=== PATIENT | female | born 2000 | race American Indian/Alaskan Native ===

== ENCOUNTER 2019-05-31 00:44 | Outpatient (CLI) | payer MEDICAID ==
[2019-05-31 01:24] VITALS: BP 100/51
== END 2019-05-31 01:35 | disposition home or self-care (01) ==
LOC: TRG 00:44
PROVIDERS: ATTEND Obstetrics & Gynecology
DX: O47.1 False labor at or after 37 completed weeks of gestation (principal); Z3A.40 40 weeks gestation of pregnancy
CPT/HCPCS: 59025

== ENCOUNTER 2019-06-03 11:01 | Outpatient (CLI) | payer MEDICAID ==
[2019-06-03 11:27] VITALS: BP 106/67
== END 2019-06-03 13:40 | disposition home or self-care (01) ==
LOC: TRG 11:01
PROVIDERS: ATTEND Obstetrics & Gynecology
DX: O26.893 Other specified pregnancy related conditions, third trimester (principal); R25.2 Cramp and spasm; Z3A.40 40 weeks gestation of pregnancy
CPT/HCPCS: 59025

== ENCOUNTER 2019-06-05 05:46 | Inpatient (IN) | payer MEDICAID ==
[2019-06-05 06:55] LABS: Basophils % (Auto) 0.2 % (0.0-1.8); Eosinophils # (Auto) 0.1 K/mm3 (0.0-0.4); Eosinophils % (Auto) 0.7 % (0.0-4.3); Hematocrit 34.2 % (30.3-42.9); Hemoglobin 11.5 gm/dl (10.1-14.3); Lymphocytes % (Auto) 18.2 % (13.4-35.0); Mean Corpuscular HGB Conc 34 % (30-34); Mean Corpuscular Volume 86 fl (79-97); Monocytes # (Auto) 1.4 K/mm3 (0.0-0.8); Monocytes % (Auto) 12.5 % (0.0-7.3); Platelet Count 215 K/mm3 (140-440); Red Blood Count 3.99 M/mm3 (3.65-5.03); Red Cell Distribution Width 14.4 % (13.2-15.2)
[2019-06-05] MEDS ORDERED: NALOXONE 0.4 MG/1 ML INJ IV PRN (07:04)
[2019-06-05] MEDS ORDERED: BUTORPHANOL 2 MG/1 ML INJ IV PRN (07:04)
[2019-06-05] MEDS ORDERED: LIDOCAINE (2%) 20 MG/1 ML VIAL 20 ML MDV INFILTRATI ONE (07:04)
[2019-06-05] MEDS ORDERED: PROMETHAZINE 25 MG TAB PO PRN ×2 (07:04→14:54)
[2019-06-05] MEDS ORDERED: ONDANSETRON 4 MG/2 ML INJ IV PRN ×2 (07:04→14:54)
[2019-06-05] MEDS ORDERED: fentaNYL 100 MCG/2 ML INJ IV PRN (07:04)
[2019-06-05] MEDS ORDERED: ePHEDrine SULFATE 50 MG/1 ML INJ IV PRN ×2 (07:04→09:00)
[2019-06-05] MEDS ORDERED: TERBUTALINE 1 MG/1 ML INJ SUB-Q PRN (07:04)
[2019-06-05] MEDS ORDERED: MINERAL OIL 30 ML ORAL LIQD PO PRN (07:04)
[2019-06-05] MEDS ORDERED: TERBUTALINE 1 MG/1 ML INJ IVP PRN (07:04)
--- NOTE | 2019-06-05 07:23 | History and Physical Report ---
History of Present Illness Date of examination: 06/05/19 Date of admission: 06/05/19 Chief complaint: Contractions History of present illness: Pt is a 19 yo at 40.5 weeks EGA who presents reporting regular uterine contractions since midnight. She has received care with [facility] since 20 weeks EGA. Her has been complicated by Trichomonas with negative test of cure. She is GBS negative and denies leaking fluid. Past History Past Medical History: no pertinent history Past Surgical History: no surgical history [employer] History: trichomonas Family/Genetic History: diabetes Social history: no significant social history - Obstetrical History Expected Date of Delivery: 05/31/19 Actual Gestation: 40 Week(s) 5 Day(s) : 4 Para: 1 Hx # Term Pregnancies: 1 Induced : 2 Number of Living Children: 1 Medications and Allergies Allergies Allergy/AdvReac Type Severity Reaction Status Date / Time No Known Allergies Allergy Verified 06/05/19 07:08 Active Meds: Active Medications Butorphanol Tartrate (Stadol) 2 mg IV Q2H PRN PRN Reason: Pain , Severe (7-10) Ephedrine Sulfate (Ephedrine Sulfate) 10 mg IV Q2M PRN PRN Reason: Hypotension Fentanyl (Sublimaze) 100 mcg IV Q2H PRN PRN Reason: Labor Pain Oxytocin/Sodium Chloride (Pitocin/Ns 20 Unit/1000ml Drip) 20 units in 1,000 mls @ 125 mls/hr IV DIRECT ARIEL Lactated Ringer's (Lactated Ringers) 1,000 mls @ 125 mls/hr IV DIRECT ARIEL Mineral Oil (Mineral Oil) 30 ml PO QHS PRN PRN Reason: Constipation Naloxone HCl (Naloxone) 0.1 mg IV Q2MIN PRN PRN Reason: Res Rate </= 8 or 02 SAT < 92% Ondansetron HCl (Zofran) 4 mg IV Q8H PRN PRN Reason: Nausea And Vomiting Promethazine HCl (Phenergan) 25 mg PO Q6H PRN PRN Reason: Nausea And Vomiting Terbutaline Sulfate (Brethine) 0.25 mg SUB-Q ONCE PRN PRN Reason: Hyperstimulation/Hypertonicity Terbutaline Sulfate (Brethine) 0.25 mg IVP ONCE PRN PRN Reason: Hyperstimulation/Hypertonicity Review of Systems All systems: negative Genitourinary: vaginal bleeding (spotting, bloody show), vaginal discharge, contractions, no leakage of fluid - Vital Signs Vital signs: Vital Signs Temp Pulse Resp BP 98.7 F 118 H 16 112/55 06/05/19 06:10 06/05/19 06:10 06/05/19 06:10 06/05/19 06:10 Temp Pulse Resp BP Pulse Ox 98.7 F 118 H 16 112/55 06/05/19 06:10 06/05/19 06:10 06/05/19 06:10 06/05/19 06:10 - Physical Exam Lungs: Positive: Normal air movement Abdomen: Positive: soft Genitourinary (Female): Positive: normal external genitalia Vagina: Positive: normal moisture Uterus: Positive: enlarged (gravid) Extremities: Positive: normal - Obstetrical FHR: category 1 Uterine Contraction Monitor Mode: External Cervical Dilatation: 6 Cervical Effacement Percentage: 50 station: -3 Uterine Contraction Pattern: Irregular Results Result Diagrams: 06/05/19 06:20 Abnormal lab results 06/05/19 Range/Units 06:20 Early % (Auto) 12.5 H (0.0-7.3) % Early # 1.4 H (0.0-0.8) K/mm3 All other labs normal. Assessment and Plan A: 19 yo at 40.5 weeks EGA Contractions with advanced dilation GBS negative Trichomonas this , cured P: Admit for labor. Augment as needed Pain relief as requested Anticipate
[2019-06-05] MEDS: LACTATED RINGERS 1,000 ML IV SCH ×3 (08:00→10:01)
[2019-06-05] MEDS ORDERED: OXYTOCIN 20 UNIT/1000ML DRIP 20 UNITS/1,000 ML BAG IV SCH (08:00)
--- NOTE | 2019-06-05 08:47 | Anesthesia Consultation ---
Anesthesia Consult and Med Hx Date of service: 06/05/19 - Airway Anesthetic Teeth Evaluation: Good ROM Head & Neck: Adequate Mental/Hyoid Distance: Adequate Mallampati Class: Class II Intubation Access Assessment: Probably Good - Pulmonary Exam CTA: Yes - Cardiac Exam Cardiac Exam: RRR - Pre-Operative Health Status ASA Pre-Surgery Classification: ASA2 Proposed Anesthetic Plan: Epidural - Pulmonary Hx Smoking: No Hx Asthma: No Hx Respiratory Symptoms: No SOB: No COPD: No Home Oxygen Therapy: No Hx Pneumonia: No Hx Sleep Apnea: No - Cardiovascular System Hx Hypertension: No Hx Coronary Artery Disease: No Hx Heart Attack/AMI: No Hx Angina: No Hx Percutaneous Transluminal Coronary Angioplasty (PTCA): No Hx Cardia Arrhythmia: No Hx Pacemaker: No Hx Internal Defibrillator: No Hx Valvular Heart Disease: No Hx Heart Murmur: No Hx Peripheral Vascular Disease: No - Central Nervous System Hx Neuromuscular Disorder: No Hx Seizures: No CVA: No Hx Back Pain: No Hx Psychiatric Problems: No - Gastrointestinal Hx Ulcer: No Hx Gastroesophageal Reflux Disease: No - Endocrine Hx Renal Disease: No Hx End Stage Renal Disease: No Hx Cirrhosis: No Hx Liver Disease: No Hx Insulin Dependent Diabetes: No Hx Non-Insulin Dependent Diabetes: No Hx Thyroid Disease: No Hx Hypothyroidism: No Hx Hyperthyroidism: No - Hematic Hx Anemia: No Hx Sickle Cell Disease: No - Other Systems Hx Alcohol Use: No Hx Substance Use: No Hx Cancer: No Hx Obesity: No
[2019-06-05] MEDS ORDERED: DEXMEDETOMIDINE 200 MCG/2 ML VIAL IV ONE (08:53)
[2019-06-05] MEDS ORDERED: NALOXONE 2 MG/2 ML INJ IV PRN (09:00)
[2019-06-05] MEDS ORDERED: fentaNYL-BUPIV 2 MCG/ML-0.125% 200 MCG/100 ML BAG EPIDURAL SCH (09:00)
[2019-06-05] MEDS: OXYTOCIN DRIP 30 UNITS/500 ML BAG IV SCH ×6 (09:44→14:04)
--- NOTE | 2019-06-05 13:17 | Event Note ---
Date: 06/05/19 SVE /-3 with bulging bag of water. PT elects for AROM. AROM at 1256 in sterile fashion, moderate meconium noted. FHT category 1 throughout, pt tolerated well. Continue augmentation of la bor with Pitocin.
[2019-06-05] MEDS ORDERED: METHYLERGONOVINE MALEATE 0.2 MG/ML VIAL IM ONE (14:44)
--- NOTE | 2019-06-05 14:53 | Procedure Note ---
OB Delivery Note - Delivery Date of Delivery: 06/05/19 Surgeon: BRYSON LIMA ([facility]) Estimated blood loss: other (600cc) - Vaginal Delivery presentation: vertex Delivery position: OA Intrapartum events: PROM->1hr before delivery, meconium Delivery induction: none Delivery augmentation: rupture of membranes, pitocin Delivery monitor: external FHT, external uterine Route of delivery: Delivery placenta: spontaneous Delivery cord: nuchal cord, 3 umbilical vessels Episiotomy: none Delivery laceration: none Anesthesia: epidural Delivery comments: Excellent maternal effort resulted in of viable female infant. Meconium stained fluid noted. Head delivered OA, restituted LOT, loose nuchal cord x1 reduced on perinuem, shoulders followed easily. gasping initially, stimulated and bulb suctioned. Delayed cord clamping. Half [place]/half [place] placenta delivered spontaneously and intact. Brisk uterine bleeding noted, no perineal lacerations noted. Bimanual massage, Pitocin IV, and Methergine 0.2 mg IM administered, bleeding resolved. EBL 600 mL. Sponge and instrument counts correct x2.
[2019-06-05] MEDS ORDERED: MAGNESIUM HYDROXIDE (MOM) ORAL LIQD UDC PO PRN (14:54)
[2019-06-05] MEDS ORDERED: WITCH HAZEL/ GLYCERIN PAD TP PRN (14:54)
[2019-06-05] MEDS ORDERED: diphenhydrAMINE 25 MG CAP PO PRN (14:54)
[2019-06-05] MEDS ORDERED: LANOLIN/ZINC/DIMETHICONE (LANSINOH) 7 GM TP PRN (14:54)
[2019-06-05] MEDS ORDERED: PROMETHAZINE 25 MG RECT SUPP PR PRN (14:54)
[2019-06-05] MEDS ORDERED: ACETAMINOPHEN 325 MG TAB PO PRN (14:54)
[2019-06-05] MEDS: IBUPROFEN 600 MG TAB PO SCH (23:08)
[2019-06-05] MEDS: FERROUS SULFATE 325 MG TAB PO SCH (23:08)
[2019-06-06 05:03] LABS: Hematocrit 33.2 % (30.3-42.9)
[2019-06-06] MEDS: FERROUS SULFATE 325 MG TAB PO SCH ×2 (11:00→21:52)
[2019-06-06] MEDS: IBUPROFEN 600 MG TAB PO SCH ×3 (12:33→23:56)
--- NOTE | 2019-06-06 12:49 | Progress Note ---
Assessment and Plan A/P PPD#1 Doing well routine PP care d/c home tomorrow Subjective - Subjective Date of service: 06/06/19 Principal diagnosis: s/p : girl Patient reports: appetite normal, voiding normally, pain well controlled, f latus, ambulating normally [place]: doing well Objective - Vital Signs Latest vital signs: Vital Signs Temp Pulse Resp BP Pulse Ox 06/06/19 12:17 98.1 F 101 H 18 93/54 99 06/06/19 07:43 97.4 F L 91 H 18 87/43 98 06/05/19 23:55 98.5 F 95 H 20 96/52 99 06/05/19 16:47 98.9 F 91 H 14 106/43 99 06/05/19 16:24 91 H 116/58 06/05/19 16:22 96 H 97 06/05/19 16:17 91 H 98 06/05/19 16:12 82 99 06/05/19 16:08 88 118/59 06/05/19 16:07 85 99 06/05/19 16:02 111 H 99 06/05/19 15:57 82 98 06/05/19 15:53 82 110/57 06/05/19 15:52 77 98 06/05/19 15:47 86 99 06/05/19 15:42 82 100 06/05/19 15:38 80 124/57 06/05/19 15:37 83 100 06/05/19 15:35 103 H 94 06/05/19 15:32 96 H 99 06/05/19 15:27 156 H 97 06/05/19 15:26 72 91 06/05/19 15:24 85 116/57 06/05/19 15:21 92 H 99 06/05/19 15:16 91 H 99 06/05/19 15:11 95 H 100 06/05/19 15:09 92 H 117/58 06/05/19 15:06 97 H 99 06/05/19 15:01 111 H 98 06/05/19 14:56 120 H 99 06/05/19 14:51 117 H 99 06/05/19 14:46 125 H 98 06/05/19 14:41 138 H 98 06/05/19 14:36 159 H 98 06/05/19 14:31 133 H 99 06/05/19 14:26 128 H 98 06/05/19 14:21 135 H 100 06/05/19 14:16 123 H 99 06/05/19 14:11 118 H 100 06/05/19 14:06 101 H 99 06/05/19 14:01 92 H 98 06/05/19 13:56 91 H 99 06/05/19 13:51 106 H 99 06/05/19 13:46 95 H 99 06/05/19 13:41 115 H 98 06/05/19 13:36 92 H 98 06/05/19 13:31 110 H 99 06/05/19 13:26 114 H 98 06/05/19 13:21 102 H 98 06/05/19 13:20 94 H 85/54 06/05/19 13:16 102 H 98 06/05/19 13:11 95 H 97 06/05/19 13:06 98 H 98 06/05/19 13:01 99 H 98 06/05/19 12:56 126 H 98 06/05/19 12:51 99 H 92/44 98 Intake and Output 06/05/19 06/06/19 06/06/19 23:59 07:59 15:59 Intake Total 240 Output Total 1200 Balance -960 Intake: Oral 240 Output: Urine 1200 Void 1200 Other: Total, Intake Amount 240 Total, Output Amount 400 # Voids Void 2 1 - Exam Breasts: Present: normal Cardiovascular: Present: Regular rate, Normal S1 Lungs: Present: Clear to auscultation, Normal air movement Abdomen: Present: normal appearance, soft, normal bowel sounds. Absent: distention, tenderness, guarding Uterus: Present: normal, firm, fundal height below umbilicus. Absent: bogginess, tenderness Extremities: Present: normal Deep Tendon Reflex Grade: Normal +2 Incision: Present: normal
--- NOTE | 2019-06-06 17:48 | Post Anesthesia Evaluation ---
- Post Anesthesia Evaluation Patient Participated: Yes Airway Patent: Yes Stable Respiratory Function: Yes Nausea/Vomiting: No Temp > 96.8F: Yes Pain Manageable: Yes Adequeate Hydration: Yes Anesthesia Complications: No Block Receding Appropriately: Yes Patient on Ventilator: No
[2019-06-07] MEDS: IBUPROFEN 600 MG TAB PO SCH ×2 (05:45→12:20)
[2019-06-07] MEDS: FERROUS SULFATE 325 MG TAB PO SCH (10:18)
--- NOTE | 2019-06-07 10:57 | Progress Note ---
Assessment and Plan A/P PPD#2 Doing well routine PP care d/c home today Subjective - Subjective Date of service: 06/07/19 Principal diagnosis: s/p : girl Patient reports: appetite normal, voiding normally, pain well controlled, flat us, ambulating normally [place]: doing well Objective - Vital Signs Latest vital signs: Vital Signs Temp Pulse Resp BP Pulse Ox 06/07/19 08:06 97.8 F 90 18 97/55 98 06/07/19 05:45 18 06/07/19 01:13 98.4 F 117 H 18 96/52 98 06/06/19 15:43 97.8 F 91 H 18 94/53 99 06/06/19 12:17 98.1 F 101 H 18 93/54 99 Intake and Output 06/06/19 06/07/19 06/07/19 23:59 07:59 15:59 Intake Total 360 Balance 360 Intake: Intake, Free Water 360 Other: # Voids Void 2 - Exam Breasts: Present: normal Cardiovascular: Present: Regular rate, Normal S1 Lungs: Present: Clear to auscultation, Normal air movement Abdomen: Present: normal appearance, soft, normal bowel sounds. Absent: distention, tenderness, guarding Uterus: Present: normal, firm, fundal height below umbilicus. Absent: bogginess, tenderness Extremities: Present: normal Deep Tendon Reflex Grade: Normal +2 Incision: Present: normal
--- NOTE | 2019-06-07 10:59 | Discharge Summary ---
Providers - Providers Date of Admission: 06/05/19 07:32 Date of discharge: 06/07/19 Attending physician: ESTRELLA NI MD Primary care physician: JEANIE HALL Hospitalization Reason for admission: active labor Delivery: Episiotomy: none Laceration: none Other procedures: none Discharge diagnosis: IUP at term delivered baby: female Hospital course: routine PP care. s/p Condition at discharge: Good Disposition: DC-01 TO HOME OR SELFCARE Plan - Discharge Medications Prescriptions: Ibuprofen [Motrin] 600 mg PO Q8H PRN #30 tablet PRN Reason: Pain oxyCODONE /ACETAMINOPHEN [Percocet 5/325] 1 tab PO Q6HR PRN #20 tablet PRN Reason: Pain - Provider Discharge Summary Activity: routine, no sex for 6 weeks, no strenuous exercise Diet: routine Instructions: routine Additional instructions: [] Smoking cessation referral if applicable(refer to patient education folder for contact #) [] Refer to [facility] Booklet Call your doctor immediately for: * Fever > 100.5 * Heavy vaginal bleeding ( >1 pad per hour) * Severe persistent headache * Shortness of breath * Reddened, hot, painful area to leg or breast * Drainage or odor from incision. * Keep incision clean and dry at all times and follow doctor's instructions regarding bathing/showering - Follow up plan Follow up: JEANIE HALL MD [Primary Care Provider] - 07/04/19
[2019-06-07 13:33] VITALS: BP 104/60
== END 2019-06-07 14:35 | disposition home or self-care (01) | DRG 775 ==
LOC: TRG 05:46 → LD 07:32 → OB 16:56
PROVIDERS: ADMIT Obstetrics & Gynecology; ATTEND Obstetrics & Gynecology
PROC: 10E0XZZ Delivery of Products of Conception, External Approach (ICD-10-PCS; principal; 2019-06-05)
PROC: 10907ZC Drainage of Amniotic Fluid, Therapeutic from Products of Conception, Via Natural or Artificial Opening (ICD-10-PCS; 2019-06-05)
PROC: 3E0R3BZ Introduction of Anesthetic Agent into Spinal Canal, Percutaneous Approach (ICD-10-PCS; 2019-06-05)
PROC: 00HU33Z Insertion of Infusion Device into Spinal Canal, Percutaneous Approach (ICD-10-PCS; 2019-06-05)
DX: O77.0 Labor and delivery complicated by meconium in amniotic fluid (principal); O42.02 Full-term premature rupture of membranes, onset of labor within 24 hours of rupture; O69.81X0 Labor and delivery complicated by cord around neck, without compression, not applicable or unspecified; Z3A.40 40 weeks gestation of pregnancy; Z37.0 Single live birth
CPT/HCPCS: 36415; 59025; 85014; 85018; 85025; 86592; 86850; 86900; 86901; 88307; G0378; J2210; J2590; J3490; J7120